=== PATIENT | female | born 1960 | race Two or more races ===

== ENCOUNTER 2025-02-12 00:34 | Emergency (ER) | payer OTHER ==
[~2025-02-12] VITALS: Ht 167.6 cm; Wt 65.8 kg
[2025-02-12 03:15] LABS: APPEARANCE,URINE CLEAR (CLEAR); BLOOD, URINE 2+ Ery/uL (NEGATIVE); LEUKOCYTE ESTERASE ,URINE 1+ (NEGATIVE); NITRITE, URINE NEGATIVE (NEGATIVE); UGLUCOSE NEGATIVE (NEGATIVE)
[2025-02-12 03:34] LABS: ADD URINE CULTURE YES; SQUAMOUS EPITHELIAL CELL,UR Few /HPF (None Seen)
[2025-02-12] MEDS ORDERED: LEVOFLOXACIN (250MG) 250 MG TABLET ONE (04:36)
[2025-02-12] MEDS ORDERED: FLUCONAZOLE (100 MG) 100 MG TABLET ONE (04:36)
[2025-02-12] MEDS: FLUCONAZOLE (100 MG) 100 MG TABLET PO ONE (04:42)
[2025-02-12] MEDS: LEVOFLOXACIN (250MG) 250 MG TABLET PO ONE (04:42)
[2025-02-12] MEDS ORDERED: FLUC150T PO (04:46)
[2025-02-12] MEDS ORDERED: LEVO500T90 PO (04:46)
[2025-02-12 05:05] VITALS: BP 130/80; TEMP 98; O2SAT 98
[2025-02-18] MEDS ORDERED: SULF1TAB48 PO (07:21)
== END 2025-02-12 05:06 | disposition home or self-care (01) ==
LOC: ER 00:37
DX: R30.0 Dysuria (principal); Z87.440 Personal history of urinary (tract) infections; N98.9 Complication associated with artificial fertilization, unspecified
CPT/HCPCS: 81001; 87086-TC